=== PATIENT | female | born 1965 | race Asian ===

== ENCOUNTER 2017-05-06 09:41 | Emergency (ER) | payer OTHER ==
[2017-05-06 12:13] LABS: INFLUENZA A AMPLIFICATION POSITIVE (NEGATIVE); INFLUENZA B AMPLIFICATION NEGATIVE (NEGATIVE)
== END 2017-05-06 12:49 | disposition home or self-care (01) ==
LOC: M ED 09:41
DX: J09.X2 Influenza due to identified novel influenza A virus with other respiratory manifestations (principal); Z20.828 Contact with and (suspected) exposure to other viral communicable diseases; Z79.899 Other long term (current) drug therapy
CPT/HCPCS: 71046

== ENCOUNTER → 2018-05-31 | Outpatient (REF) | payer OTHER ==
[~2018-05-31] MED LIST: BENZ200C70 PO; CEFT250T8 PO; CETI10TA; KETO0.02; MONT10TA2; TYLE325T5 PO; VENTAER IN
[2018-05-31 14:12] LABS: INFLUENZA A AMPLIFICATION NEGATIVE (NEGATIVE); INFLUENZA B AMPLIFICATION NEGATIVE (NEGATIVE)
== END ==
LOC: M LAB REF 13:24
PROVIDERS: ATTEND Nurse Practitioner Family
DX: J11.1 Influenza due to unidentified influenza virus with other respiratory manifestations (principal)

== ENCOUNTER 2023-09-25 13:42 | Emergency (ER) | payer OTHER ==
[~2023-09-25] VITALS: Ht 160 cm; Wt 65.7 kg
[~2023-09-25 13:42] MED LIST changes: -KETO0.02; +KETO5DRO33; -MONT10TA2; +MONT10TA97
[2023-09-25] MEDS ORDERED: NOXI1TAB PO (13:56)
[2023-09-25] MEDS ORDERED: B-12100011 SL (13:56)
[2023-09-25] MEDS ORDERED: ATOR1TAB19 (13:56)
[2023-09-25] MEDS ORDERED: MELO15TA28 (13:56)
[2023-09-25] MEDS ORDERED: ACET650T61 PO (13:56)
[2023-09-25] MEDS ORDERED: CIDA500T2 PO (13:56)
[2023-09-25] MEDS ORDERED: FAMO20TA PO (13:56)
[2023-09-25] MEDS ORDERED: CEPH500C PO (16:54)
[2023-09-25] MEDS: CEPHALEXIN 500 MG CAP PO ONE (16:58)
[2023-09-25 17:00] VITALS: BP 172/79; TEMP 97.8; O2SAT 96
== END 2023-09-25 17:01 | disposition home or self-care (01) ==
LOC: M ED 14:36
DX: S60.450A Superficial foreign body of right index finger, initial encounter (principal); L08.9 Local infection of the skin and subcutaneous tissue, unspecified; Z90.89 Acquired absence of other organs; Z79.02 Long term (current) use of antithrombotics/antiplatelets; Z79.899 Other long term (current) drug therapy; Y92.009 Unspecified place in unspecified non-institutional (private) residence as the place of occurrence of the external cause; Y93.89 Activity, other specified; Y99.9 Unspecified external cause status

== ENCOUNTER → 2024-06-09 | Outpatient (REF) | payer OTHER ==
[~2024-06-09] MED LIST changes: +ACET650T61 PO; +ATOR1TAB19; +ATOR1TAB21 PO; +B-12100011 SL; +CEPH500C PO; +CETI-24 PO; +CIDA500T2 PO; +FAMO20TA PO; +GLUC500C37 PO; +MELO15TA28 PO; +NOXI1TAB PO; +THERTAB52 PO
== END ==
LOC: M LAB REF 17:18
PROVIDERS: ATTEND Physician Assistant Medical
DX: B34.9 Viral infection, unspecified (principal)

== ENCOUNTER 2024-07-15 08:22 | Day surgery (SDC) | payer OTHER ==
[~2024-07-15] VITALS: Ht 157.5 cm; Wt 66.6 kg
[~2024-07-15 08:22] MED LIST changes: +MONT10TA97 PO; +PHENYLEPHRINE 10% OPHTH SOL 5ML OD PRN
[2024-07-15] MEDS: LIDOCAINE 3.5 % 1ML OPHTH TOPICAL GEL OU ONE (09:15)
[2024-07-15] MEDS: OFLOXACIN 0.3 % (OCUFLOX) OPTH SOL 5ML OD ONE (09:15)
[2024-07-15] MEDS: PHENYLEPHRINE 2.5% OPHTH SOL 2ML OD SCH (09:35)
[2024-07-15] MEDS: TROPICAMIDE 1% OPHTH SOLN 15ML OD SCH (09:35)
[2024-07-15] MEDS: CYCLOPENTOLATE 1% OPHTH SOLN 2ML BTL OD SCH (09:35)
[2024-07-15] MEDS ORDERED: MIDAZOLAM INJ 2MG/2ML VIAL As Ordered ONE (09:49)
[2024-07-15] MEDS ORDERED: fentaNYL 100 MCG/2 ML INJECTION As Ordered ONE (09:49)
[2024-07-15] MEDS: BSS IRRIG/VANCO(10MG)/TOBRA(5MG)/EPINEPH(1:1000-0.5CC)500ML BAG-ORONLY As Ordered ONE (10:30)
[2024-07-15] MEDS: LIDOCAINE 1% SDV 5ML VIAL As Ordered ONE (10:32)
[2024-07-15] MEDS: CEFUROXIME 1MG/0.1ML INTRACAMERAL INJ As Ordered ONE (10:36)
[2024-07-15 10:44] VITALS: BP 145/79; TEMP 97.1; O2SAT 98
== END 2024-07-15 11:02 | disposition home or self-care (01) ==
LOC: M SDC 08:22
PROVIDERS: ATTEND Ophthalmology
DX: H25.11 Age-related nuclear cataract, right eye (principal); E78.00 Pure hypercholesterolemia, unspecified; Z79.899 Other long term (current) drug therapy; E73.9 Lactose intolerance, unspecified
CPT/HCPCS: 66984; J0697; J2250; J3010; V2632

== ENCOUNTER 2024-07-29 08:45 | Day surgery (SDC) | payer OTHER ==
[~2024-07-29] VITALS: Ht 160 cm; Wt 66.2 kg
[~2024-07-29 08:45] MED LIST changes: -PHENYLEPHRINE 10% OPHTH SOL 5ML OD PRN; +PHENYLEPHRINE 10% OPHTH SOL 5ML OS PRN
[2024-07-29] MEDS: OFLOXACIN 0.3 % (OCUFLOX) OPTH SOL 5ML OS ONE (09:55)
[2024-07-29] MEDS: PHENYLEPHRINE 2.5% OPHTH SOL 2ML OS SCH (09:56)
[2024-07-29] MEDS: CYCLOPENTOLATE 1% OPHTH SOLN 2ML BTL OS SCH (09:56)
[2024-07-29] MEDS: LIDOCAINE 3.5 % 1ML OPHTH TOPICAL GEL OU ONE (09:56)
[2024-07-29] MEDS: TROPICAMIDE 1% OPHTH SOLN 15ML OS SCH (09:56)
[2024-07-29] MEDS ORDERED: MIDAZOLAM INJ 2MG/2ML VIAL As Ordered ONE (09:57)
[2024-07-29] MEDS ORDERED: fentaNYL 100 MCG/2 ML INJECTION As Ordered ONE (09:58)
[2024-07-29] MEDS: CEFUROXIME 1MG/0.1ML INTRACAMERAL INJ As Ordered ONE (11:19)
[2024-07-29] MEDS: LIDOCAINE 1% SDV 5ML VIAL As Ordered ONE (11:19)
[2024-07-29] MEDS: BSS IRRIG/VANCO(10MG)/TOBRA(5MG)/EPINEPH(1:1000-0.5CC)500ML BAG-ORONLY As Ordered ONE (11:19)
[2024-07-29 11:33] VITALS: BP 151/79; TEMP 96.8; O2SAT 96
== END 2024-07-29 11:56 | disposition home or self-care (01) ==
LOC: M SDC 08:45
PROVIDERS: ATTEND Ophthalmology
DX: H25.12 Age-related nuclear cataract, left eye (principal); E78.00 Pure hypercholesterolemia, unspecified; Z79.899 Other long term (current) drug therapy; Z98.41 Cataract extraction status, right eye; E73.9 Lactose intolerance, unspecified
CPT/HCPCS: 66984; J0697; J2250; J3010; V2632

== ENCOUNTER 2024-12-26 07:06 | Emergency (ER) | payer OTHER ==
[~2024-12-26] VITALS: Ht 160 cm; Wt 50.3 kg
[~2024-12-26 07:06] MED LIST changes: -PHENYLEPHRINE 10% OPHTH SOL 5ML OS PRN
[2024-12-26 09:51] VITALS: BP 145/70; TEMP 98.7; O2SAT 97
== END 2024-12-26 09:58 | disposition home or self-care (01) ==
LOC: M ED 07:06
DX: L25.9 Unspecified contact dermatitis, unspecified cause (principal); E78.5 Hyperlipidemia, unspecified; Z91.0110 Allergy to milk products, unspecified; Z91.048 Other nonmedicinal substance allergy status; Z79.1 Long term (current) use of non-steroidal anti-inflammatories (NSAID); Z79.02 Long term (current) use of antithrombotics/antiplatelets; Z79.899 Other long term (current) drug therapy